=== PATIENT | female | born 1955 | race Caucasian/White ===

== ENCOUNTER → 2018-02-03 | Outpatient (REF) | payer MEDICAID ==
[2018-02-03 18:24] LABS: BASO # 0.1 10^3/uL (0.0-0.2); BASO % 0.4 % (0.0-1.0); EOS # 0.4 10^3/uL (0.0-0.50); EOS % 3.7 % (0.0-3.0); HEMATOCRIT 34.3 % (36.0-47.0); HEMOGLOBIN 11.7 g/dl (12.0-15.5); IMMATURE GRANULOCYTE % 0.4 % (0-3.0); LYMPH # 2.2 10^3/uL (1.5-4.5); LYMPH % 18.6 % (24.0-44.0); MEAN CORPUSCULAR HEMOGLOBIN 32.1 pg (27.0-33.0); MEAN CORPUSCULAR HGB CONC 34.1 g/dl (32.0-36.5); MONO # 0.9 10^3/uL (0.0-0.8); MONO % 7.7 % (0.0-5.0); NEUTROPHILS # 8.1 10^3/uL (1.8-7.7); NEUTROPHILS % 69.2 % (36.0-66.0); PLATELET COUNT, AUTOMATED 299 10^3/uL (150-450); RED BLOOD COUNT 3.65 10^6/uL (4.00-5.40); RED CELL DISTRIBUTION WIDTH 12.3 % (11.5-14.5); WHITE BLOOD COUNT 11.8 10^3/uL (4.0-10.0)
[2018-02-03 18:51] LABS: ESTIMATED AVERAGE GLUCOSE 103 MG/DL (60-110); HEMOGLOBIN A1c 5.2 %
[2018-02-03 19:10] LABS: ALBUMIN 4.1 GM/DL (3.2-5.2); ALBUMIN/GLOBULIN RATIO 1.24 (1.00-1.93); ALKALINE PHOSPHATASE 63 U/L (45-117); ALT/SGPT 29 U/L (12-78); ANION GAP 5 MEQ/L (8-16); AST/SGOT 25 U/L (7-37); BILIRUBIN,TOTAL 0.3 MG/DL (0.2-1.0); BLOOD UREA NITROGEN 15 MG/DL (7-18); CALCIUM LEVEL 9.1 MG/DL (8.8-10.2); CARBON DIOXIDE LEVEL 30 MEQ/L (21-32); CHLORIDE LEVEL 106 MEQ/L (98-107); CHOLESTEROL LEVEL 165 MG/DL (<200); CHOLESTEROL RISK RATIO 2.062 (<5); CREATININE FOR GFR 1.29 MG/DL (0.55-1.30); GLOMERULAR FILTRATION RATE 44.3 (>45); GLUCOSE, FASTING 85 MG/DL (70-100); HDL CHOLESTEROL 80 MG/DL (>40); NON-HDL-C 85 MG/DL; SODIUM LEVEL 141 MEQ/L (136-145); TOTAL PROTEIN 7.4 GM/DL (6.4-8.2); TRIGLYCERIDES LEVEL 95 MG/DL (<150)
== END ==
LOC: M LAB REF 17:18
DX: Z00.00 Encounter for general adult medical examination without abnormal findings (principal)
CPT/HCPCS: 80053

== ENCOUNTER → 2018-08-13 | Outpatient (REF) | payer OTHER, MEDICAID ==
[2018-08-13 13:28] LABS: BASO # 0.1 10^3/uL (0.0-0.2); BASO % 0.8 % (0.0-1.0); EOS # 0.4 10^3/uL (0.0-0.50); EOS % 5.2 % (0.0-3.0); HEMOGLOBIN 11.7 g/dl (12.0-15.5); IMMATURE GRANULOCYTE % 0.1 % (0-3.0); LYMPH % 39.4 % (24.0-44.0); MEAN CORPUSCULAR HEMOGLOBIN 30.8 pg (27.0-33.0); MEAN CORPUSCULAR HGB CONC 32.5 g/dl (32.0-36.5); MEAN CORPUSCULAR VOLUME 94.7 fl (80.0-96.0); MONO # 0.7 10^3/uL (0.0-0.8); NEUTROPHILS # 3.4 10^3/uL (1.8-7.7); NEUTROPHILS % 45.5 % (36.0-66.0); PLATELET COUNT, AUTOMATED 295 10^3/uL (150-450); RED CELL DISTRIBUTION WIDTH 12.1 % (11.5-14.5); WHITE BLOOD COUNT 7.5 10^3/uL (4.0-10.0)
[2018-08-13 13:49] LABS: ALBUMIN 3.6 GM/DL (3.2-5.2); ALBUMIN/GLOBULIN RATIO 1.13 (1.00-1.93); ALKALINE PHOSPHATASE 69 U/L (45-117); ALT/SGPT 23 U/L (12-78); ANION GAP 9 MEQ/L (8-16); AST/SGOT 17 U/L (7-37); BILIRUBIN,TOTAL 0.3 MG/DL (0.2-1.0); BLOOD UREA NITROGEN 13 MG/DL (7-18); CARBON DIOXIDE LEVEL 29 MEQ/L (21-32); CHLORIDE LEVEL 102 MEQ/L (98-107); GLOMERULAR FILTRATION RATE 40.3 (>45); GLUCOSE, FASTING 86 MG/DL (70-100); IRON (FE) 61 UG/DL (50-170); POTASSIUM SERUM 4.2 MEQ/L (3.5-5.1); SODIUM LEVEL 140 MEQ/L (136-145); TOTAL 25(OH) VITAMIN D 25.9 NG/ML (30.0-100.0); TOTAL PROTEIN 6.8 GM/DL (6.4-8.2)
[2018-08-13 14:44] LABS: ESTIMATED AVERAGE GLUCOSE 114 MG/DL (60-110); HEMOGLOBIN A1c 5.6 %
== END ==
LOC: M LAB REF 12:20
DX: R53.81 Other malaise (principal)

== ENCOUNTER 2018-11-15 07:24 | Inpatient (IN) | payer MEDICARE, OTHER, MEDICAID ==
[~2018-11-15] VITALS: Ht 152.4 cm; Wt 76.0 kg
[2018-11-15] MEDS ORDERED: LORazepam 2 MG/ML VIAL (J2060) IV STA (07:38)
[2018-11-15] MEDS ORDERED: LISI-538 PO (07:44)
[2018-11-15] MEDS ORDERED: ALPR0.25 PO (07:44)
[2018-11-15] MEDS ORDERED: TRAM50TA2 PO (07:44)
[2018-11-15] MEDS ORDERED: OMEP20CA3 PO (07:44)
[2018-11-15] MEDS ORDERED: SERT-155 PO (07:44)
[2018-11-15] MEDS ORDERED: CARV25TA PO (07:44)
[2018-11-15] MEDS ORDERED: VITA50005 PO (07:44)
[2018-11-15] MEDS ORDERED: ATOR40TA75 PO (07:44)
[2018-11-15] MEDS ORDERED: CLON-412 PO (07:44)
[2018-11-15] MEDS ORDERED: METOCLOPRAMIDE INJ 10MG/2ML VIAL (J2765) IV ONE (07:45)
[2018-11-15] MEDS ORDERED: NS 1,000 ML IV ONE (07:45)
[2018-11-15] MEDS ORDERED: RANI1SYP PO (08:01)
[2018-11-15] MEDS ORDERED: HYDR100T PO (08:01)
[2018-11-15] MEDS ORDERED: PRED1TABL PO (08:01)
[2018-11-15] MEDS ORDERED: BUME1TAB3 PO (08:01)
[2018-11-15 08:17] LABS: BASO # 0.1 10^3/uL (0.0-0.2); BASO % 0.3 % (0.0-1.0); EOS # 0.5 10^3/uL (0.0-0.50); EOS % 3.2 % (0.0-3.0); HEMATOCRIT 40.5 % (36.0-47.0); HEMOGLOBIN 13.7 g/dl (12.0-15.5); LYMPH # 1.5 10^3/uL (1.5-4.5); LYMPH % 9.3 % (24.0-44.0); MEAN CORPUSCULAR HEMOGLOBIN 31.6 pg (27.0-33.0); MEAN CORPUSCULAR HGB CONC 33.8 g/dl (32.0-36.5); MEAN CORPUSCULAR VOLUME 93.3 fl (80.0-96.0); MONO # 1.2 10^3/uL (0.0-0.8); MONO % 7.6 % (0.0-5.0); NEUTROPHILS # 12.6 10^3/uL (1.8-7.7); NEUTROPHILS % 79.2 % (36.0-66.0); PLATELET COUNT, AUTOMATED 281 10^3/uL (150-450); RED BLOOD COUNT 4.34 10^6/uL (4.00-5.40); WHITE BLOOD COUNT 15.9 10^3/uL (4.0-10.0)
--- NOTE | 2018-11-15 08:18 | REP ---
Clinical: Nausea and vomiting and diarrhea. Technique: Upright view of the chest with supine and upright views of the abdomen and pelvis. Findings: Frontal upright view of the chest demonstrates no acute cardiopulmonary process or free air below the diaphragm to suspect pneumoperitoneum. Supine and upright views of the abdomen and pelvis demonstrate nonspecific bowel gas pattern without obstruction or perforation. No organomegaly. Skeletal structures demonstrate age-related degenerative changes. Evidence of prior cholecystectomy. Calcification in the left mid abdomen may represent a renal stone. Impression: Nonspecific bowel gas pattern. Electronically Signed by Emmanuel Rivero MD 11/15/2018 08:10 A
[2018-11-15 08:41] LABS: ALBUMIN 3.9 GM/DL (3.2-5.2); ALT/SGPT 23 U/L (12-78); BILIRUBIN,DIRECT 0.1 MG/DL (0.0-0.2); BILIRUBIN,TOTAL 0.5 MG/DL (0.2-1.0); BLOOD UREA NITROGEN 16 MG/DL (7-18); CALCIUM LEVEL 9.2 MG/DL (8.8-10.2); CARBON DIOXIDE LEVEL 24 MEQ/L (21-32); CHLORIDE LEVEL 106 MEQ/L (98-107); CPK CREATINE PHOSPHOKINASE 111 U/L (26-192); CREATININE FOR GFR 1.25 MG/DL (0.55-1.30); GLOMERULAR FILTRATION RATE 45.9 (>45); GLUCOSE, FASTING 144 MG/DL (70-100); LIPASE 123 U/L (73-393); MB/CK RELATIVE INDEX 1.17 (< OR =4); POTASSIUM SERUM 3.8 MEQ/L (3.5-5.1); SODIUM LEVEL 139 MEQ/L (136-145); THYROID STIMULATING HORMONE 0.629 uIU/ML (0.358-3.740); TOTAL PROTEIN 7.7 GM/DL (6.4-8.2); TROPONIN I < 0.02 NG/ML (< 0.10)
[2018-11-15] MEDS ORDERED: ISOVUE-370 76% 100ML VIAL (Q9967) As Ordered ONE (08:58)
[2018-11-15] MEDS ORDERED: ONDANSETRON 4MG/2ML VIAL (J2405) IV ONE ×2 (09:00→11:45)
--- NOTE | 2018-11-15 09:36 | REP ---
Clinical: Vomiting and diarrhea. Technique: Axial contrast enhanced images from the lung bases to the pubic symphysis with coronal and sagittal re-formations using 100 ml Isovue 370 intravenous contrast material. Findings: Lung bases are clear. Small hiatal hernia at the gastroesophageal junction. Liver, spleen, pancreas, bilateral adrenal glands and kidneys are relatively normal. The patient is status post cholecystectomy with compensatory biliary ductal dilatation. The enteric system is without obstruction or acute inflammatory process. Normal terminal ileum and appendix identified in the right lower quadrant. Colonic and sigmoid diverticulosis noted without acute diverticulitis. Pelvis demonstrates normal bladder and age-appropriate uterus/adnexa 3.3 cm left adnexal cyst noted. No ascites. No free air. No adenopathy. Atherosclerotic changes to the aorta and vasculature without aneurysm or dissection. Musculoskeletal structures demonstrate degenerative changes. Impression: 1. No acute abdominopelvic pathology. 2. Hiatal hernia. 3. Diverticulosis without acute diverticulitis. 4. No ascites, focal inflammatory stranding, or adenopathy. Electronically Signed by Emmanuel Rivero MD 11/15/2018 09:27 A
[2018-11-15] MEDS ORDERED: LISINOPRIL 20 MG TAB PO ONE (10:30)
[2018-11-15] MEDS ORDERED: CARVedilol 12.5 MG TAB PO ONE (10:30)
[2018-11-15] MEDS ORDERED: traMADol 50 MG TAB PO ONE (10:30)
[2018-11-15] MEDS ORDERED: cloNIDine 0.1 MG TAB PO ONE (10:30)
[2018-11-15] MEDS ORDERED: ZOFR4TAB16 PO (10:37)
[2018-11-15] MEDS ORDERED: PROMETHAZINE INJ 25 MG/ML VIAL (J2550) IV ONE (13:15)
[2018-11-15] MEDS ORDERED: hydrALAZINE INJ 20 MG/ML VIAL IV STA (13:16)
[2018-11-15] MEDS ORDERED: PRED5TA PO (14:56)
[2018-11-15] MEDS ORDERED: MELA3TAB49 PO (14:58)
[2018-11-15] MEDS ORDERED: hydrALAZINE INJ 20 MG/ML VIAL IV ONE (16:00)
[2018-11-15] MEDS ORDERED: PROMETHAZINE INJ 25 MG/ML VIAL (J2550) IV PRN (16:00)
[2018-11-15] MEDS: ALPRAZolam 0.25 MG TAB PO SCH ×2 (17:09→20:49)
[2018-11-15] MEDS: traMADol 50 MG TAB PO PRN (17:10)
[2018-11-15 18:08] VITALS: BP 177/82
[2018-11-15] MEDS ORDERED: ACETAMINOPHEN TAB 650MG DOSE (2X325MG) PO PRN (18:30)
[2018-11-15] MEDS: NS 1,000 ML IV SCH (18:32)
[2018-11-15] MEDS: CIPROFLOXACIN 400 MG in APPROPRIATE DILUENT 1 EA IV SCH (19:59)
[2018-11-15 20:42] VITALS: BP 146/79
[2018-11-15] MEDS: CARVedilol 12.5 MG TAB PO SCH (20:48)
[2018-11-15] MEDS: metroNIDAZOLE 500 MG in APPROPRIATE DILUENT 1 EA IV SCH (21:00)
[2018-11-16] VITALS: BP 100/50
[2018-11-16] MEDS: NS 1,000 ML IV SCH (03:33)
[2018-11-16 04:45] VITALS: BP 112/60
[2018-11-16] MEDS: metroNIDAZOLE 500 MG in APPROPRIATE DILUENT 1 EA IV SCH ×3 (05:06→21:11)
[2018-11-16 06:22] LABS: BASO % 0.2 % (0.0-1.0); EOS # 0.3 10^3/uL (0.0-0.50); HEMATOCRIT 36.2 % (36.0-47.0); HEMOGLOBIN 12.2 g/dl (12.0-15.5); LYMPH # 1.6 10^3/uL (1.5-4.5); LYMPH % 18.6 % (24.0-44.0); MEAN CORPUSCULAR HGB CONC 33.7 g/dl (32.0-36.5); MEAN CORPUSCULAR VOLUME 92.1 fl (80.0-96.0); MONO # 0.9 10^3/uL (0.0-0.8); NEUTROPHILS # 5.9 10^3/uL (1.8-7.7); PLATELET COUNT, AUTOMATED 264 10^3/uL (150-450); RED BLOOD COUNT 3.93 10^6/uL (4.00-5.40); WHITE BLOOD COUNT 8.7 10^3/uL (4.0-10.0)
[2018-11-16 07:42] LABS: BILIRUBIN,TOTAL 0.5 MG/DL (0.2-1.0); CALCIUM LEVEL 7.8 MG/DL (8.8-10.2); CREATININE FOR GFR 1.56 MG/DL (0.55-1.30); GLOMERULAR FILTRATION RATE 35.6 (>45); POTASSIUM SERUM 3.5 MEQ/L (3.5-5.1); TOTAL PROTEIN 6.4 GM/DL (6.4-8.2)
[2018-11-16] MEDS: CIPROFLOXACIN 400 MG in APPROPRIATE DILUENT 1 EA IV SCH ×2 (07:46→20:13)
--- NOTE | 2018-11-16 07:55 | ECGEPIP ---
Stationary ECG Study [facility] - ED Test Date: 2018-11-15 Pat Name: JEANINE MARINO Department: Room: - Gender: F Engineering Tech: aroldo : [id number] Requested By: Lakshmi Glass Order Number: [id number] Reading MD: Cece Fontenot Measurements Intervals [place] Rate: 61 P: 25 KS: 201 QRS: 7 QRSD: 77 T: 38 QT: 414 QTc: 419 Interpretive Statements SINUS RHYTHM NONSPECIFIC ST T WAVE CHANGES NO OLD ECG FOR COMPARISON Electronically Signed On 11-16-2018 7:54:42 EST by Cece Fontenot
[2018-11-16 08:00] VITALS: BP 129/61
[2018-11-16] MEDS ORDERED: LISINOPRIL 20 MG TAB PO SCH (09:00)
[2018-11-16 09:33] LABS: C REACTIVE PROTEIN QUANTITATIV 5.2 MG/DL (0.00-0.30); MB/CK RELATIVE INDEX 2.22 (< OR =4); TROPONIN I 0.08 NG/ML (< 0.10)
[2018-11-16] MEDS: cloNIDine 0.1 MG TAB PO SCH ×2 (09:48→21:10)
[2018-11-16] MEDS: SERTRALINE HCL 50 MG TAB PO SCH (09:48)
[2018-11-16] MEDS: ALPRAZolam 0.25 MG TAB PO SCH ×3 (09:48→21:09)
[2018-11-16] MEDS: ATORVASTATIN 20 MG TAB PO SCH (09:49)
[2018-11-16] MEDS: OMEPRAZOLE 20 MG CAP PO SCH (09:49)
[2018-11-16] MEDS: predniSONE 5 MG TAB PO SCH (09:49)
[2018-11-16] MEDS: CARVedilol 12.5 MG TAB PO SCH ×2 (09:49→21:11)
[2018-11-16] MEDS: HEPARIN SOD (PORCINE) 5000 UNITS/ML VIAL SQ SCH ×2 (09:50→21:09)
[2018-11-16] MEDS: KCL 20MEQ in NS 1000ML 1,000 ML IV SCH (09:50)
--- NOTE | 2018-11-16 11:56 | HPE ---
DATE OF ADMISSION: 11/15/2018 HISTORY OF PRESENT ILLNESS (HPI): This 62-year-old female with past medical history of rheumatoid arthritis, hypertension, hyperlipidemia, chronic diastolic heart failure, chronic kidney disease (CKD) III presents to the emergency room (ER) with intractable nausea, vomiting and a watery diarrhea since 1:30 this morning. She had not been around any sick contacts. She had no eaten any foreign foods recently. In the ER she was started on intravenous (IV) fluids and had episodes of vomiting in the ER and was given IV Ativan, Metoclopramide IV as well as Zofran times two. She felt somewhat better but then had another episode of vomiting and was given promethazine IV as well as given 5 of IV hydralazine due to hypertensive urgency because the patient could not take any of her blood pressure medications. At this time the patient's blood pressure is still 207/97. I am going to be giving her 20 of IV hydralazine stat and will follow the numbers. For now the patient denies any chest pain, shortness of breath, no vertigo, no headache, no tinnitus and just nausea. She will be admitted for further management. PAST MEDICAL HISTORY: 1. Hypertension. 2. Hyperlipidemia. 3. Rheumatoid arthritis. 4. Chronic diastolic heart failure. ALLERGIES: CODEINE. FAMILY HISTORY: Noncontributory. SOCIAL HISTORY: The patient denies tobacco, alcohol, or illicit drugs. Medications she takes at home are as follows: - alprazolam 0.25 mg orally three times a day - atorvastatin 40 mg orally daily - Coreg 25 mg orally twice daily - Clonidine 0.1 mg orally twice daily - ergocalciferol 50,000 units orally weekly - lisinopril 20 mg orally daily - melatonin 3 mg orally at bedtime as needed - omeprazole 20 mg orally daily - prednisone 5 mg orally daily - sertraline 50 mg orally daily - tramadol 50 mg orally every 4 hours as needed REVIEW OF SYSTEMS: Negative for all 10 major systems except as mentioned in the HPI. VITAL SIGNS: Blood pressure 207/97, heart rate 67 and regular, respiratory rate 22, temperature 98.2, oxygen saturation 97% on room air. HEENT: Head is normocephalic atraumatic. NECK: Supple, no jugular venous distention (JVD). LUNGS: Clear to auscultation. HEART: S1, S2 audible, no murmurs appreciated. ABDOMEN: Soft, positive bowel sounds. EXTREMITIES: No pedal edema. SKIN: Intact. NEUROLOGIC: The patient is awake, alert and oriented times three. LABORATORY DATA: Sodium 139, potassium 3.8, chloride 106, CO2 24, BUN 16, creatinine 1.25. Glucose 144, AST 18, ALT 23, alkaline phosphatase 82. CK 111, troponin less than 0.02, lipase 123. WBC 15.9, hemoglobin 13.7, hematocrit 40.5, platelets 21,000. IMPRESSION: 1. Acute viral gastroenteritis. 2. Hypertension urgency. PLAN: The patient will be admitted to the progressive care unit (PCU). I am going to continue her current home medications with the addition of intravenous (IV) Phenergan at 20 every 6 hours as needed for nausea. I am also going to give her IV hydralazine at 10 IV every 6 hours as needed for systolic blood pressure greater than 160. Will continue following blood pressure trends. If she is not able to take her blood pressure medication and/or if the IV hydralazine has not been effective, I am going to consider to start the patient on a nitropatch. Will continue following the patient in the med/surg floor.
[2018-11-16 12:00] VITALS: BP 102/58
[2018-11-16] MEDS: traMADol 50 MG TAB PO PRN ×3 (13:30→23:42)
[2018-11-16 16:00] VITALS: BP 123/60
[2018-11-16] MEDS ORDERED: FLAG250T PO (17:15)
[2018-11-16] MEDS ORDERED: CIPR-250 PO (17:15)
--- NOTE | 2018-11-16 17:53 | DSES ---
DATE OF ADMISSION: 11/15/2018 DATE OF DISCHARGE: PRIMARY CARE PROVIDER: Amirah Cameron FINAL DIAGNOSES: Gastroenteritis. Hypertensive urgency. HISTORY OF PRESENT ILLNESS: This is a 62-year-old female patient with underlying medical history of rheumatoid arthritis, hypertension, dyslipidemia, chronic diastolic congestive heart failure, chronic kidney disease, presented to the emergency department with intractable nausea, vomiting, watery diarrhea for one day. Has not had any sick contact or eaten at any place. No recent travel. She was given intravenous (IV) fluids. Multiple antiemetics without much improvement. The patient was also having blood pressures in the 200s in the emergency room, given hydralazine. Subsequent decision was made to admit the patient. HOSPITAL COURSE: The patient had CT scan done, started on IV fluids, as well as Cipro and Flagyl with clinical improvement. Unfortunately, the patient's diarrhea resolved before stool specimen could be collected. The patient's blood pressure has been much better controlled. Likely the patient has rebound hypertension due to clonidine. Risks and benefits of clonidine have been discussed with the patient. Currently the patient is tolerating oral without further diarrhea, but the patient's kidney function slightly worsened. Subsequent decision was made to hydrate the patient and observe the patient for one more day prior to discharge. Likely time of discharge 11/17/2018. VITAL SIGNS: Temperature 98.9, pulse 65, respirations 18, blood pressure 102/58, pulse oximetry 94% on room air. LABORATORY: WBC 8.7, hemoglobin and hematocrit 12.2 over 36.2, platelets 264. Chemistry: Sodium 140, potassium 3.5, chloride 108, bicarbonate 23, BUN 17, creatinine 1.56. Cardiac enzymes negative times two. GENERAL: Patient alert, comfortable, in no acute distress. HEENT: Normocephalic, atraumatic. NECK: Supple. PULMONARY: Bilaterally clear. CARDIAC: Regular, S1, S2. ABDOMEN: Soft, nontender, positive bowel sounds. EXTREMITIES: No clubbing, cyanosis, or edema. ASSESSMENT AND PLAN: This is a 62-year-old female patient with underlying medical history of rheumatoid arthritis, hypertension, dyslipidemia, chronic diastolic congestive heart failure, chronic kidney disease, admitted for acute gastroenteritis, hypertensive urgency. PROBLEMS: 1. Acute gastroenteritis with leukocytosis. Patient on Cipro and Flagyl, IV fluids, diet as tolerated. Unable to collect GI panel. Patient's symptoms much improved. 2. Hypertensive urgency. Likely rebound hypertension due to unable to take clonidine. 3. Chronic kidney disease with mild creatinine elevation. IV fluids for hydration. Will monitor overnight. Likely discharge in 24 hours. Lisinopril has been on hold. 4. Hypertension with hypertensive urgency. Continue clonidine. Risks and benefits have been described. Lisinopril on hold given elevated creatinine. Continue Coreg. 5. Dyslipidemia. Continue statin. 6. Gastroesophageal reflux disease (GERD). Continue proton pump inhibitor (PPI). 7. Rheumatoid arthritis. Continue current medication. 8. Depression. Continue current medication. 9. Deep vein thrombosis (DVT) prophylaxis. Heparin subcu. DISPOSITION: Likely discharge in 24 hours. DISCHARGE MEDICATIONS: - Cipro 250 mg by mouth twice a day for 5 more days - Flagyl 250 mg by mouth three times a day for 5 days - Continue Xanax 0.25 mg by mouth three times a day - Lipitor 40 mg by mouth daily - Coreg 25 mg by mouth twice a day - clonidine 0.1 mg by mouth twice a day - vitamin D 50,000 units by mouth weekly - lisinopril 20 mg by mouth daily - melatonin 3 mg by mouth nightly as needed - omeprazole 20 mg by mouth daily - prednisone 5 mg by mouth daily - sertraline 50 mg by mouth daily - tramadol 50 mg by mouth every 4 hours as needed DISCHARGE INSTRUCTIONS: Please followup with primary care provider in 7 days. Management of blood pressure as per primary care provider. Check kidney function with primary care provider. Return to the hospital if symptoms worsen.
[2018-11-16 20:00] VITALS: BP 113/65
[2018-11-17] VITALS: BP 105/62
[2018-11-17] MEDS: KCL 20MEQ in NS 1000ML 1,000 ML IV SCH (02:33)
[2018-11-17 04:00] VITALS: BP 95/55
[2018-11-17] MEDS: metroNIDAZOLE 500 MG in APPROPRIATE DILUENT 1 EA IV SCH (05:04)
[2018-11-17 05:50] LABS: HEMATOCRIT 30.8 % (36.0-47.0); HEMOGLOBIN 10.4 g/dl (12.0-15.5); MEAN CORPUSCULAR HEMOGLOBIN 31.4 pg (27.0-33.0); MEAN CORPUSCULAR HGB CONC 33.8 g/dl (32.0-36.5); MEAN CORPUSCULAR VOLUME 93.1 fl (80.0-96.0); PLATELET COUNT, AUTOMATED 216 10^3/uL (150-450); RED BLOOD COUNT 3.31 10^6/uL (4.00-5.40); WHITE BLOOD COUNT 7.1 10^3/uL (4.0-10.0)
[2018-11-17 06:12] LABS: C REACTIVE PROTEIN QUANTITATIV 1.85 MG/DL (0.00-0.30); CALCIUM LEVEL 7.5 MG/DL (8.8-10.2); CREATININE FOR GFR 1.08 MG/DL (0.55-1.30); GLOMERULAR FILTRATION RATE 54.4 (>45); MAGNESIUM LEVEL 1.5 MG/DL (1.8-2.4); POTASSIUM SERUM 3.8 MEQ/L (3.5-5.1)
[2018-11-17] MEDS ORDERED: MAG SULF 1GM/100ML (MAG RUN) 1 GM in APPROPRIATE DILUENT 1 EA IV ONE (07:30)
[2018-11-17 08:00] VITALS: BP 151/67
[2018-11-17] MEDS: CIPROFLOXACIN 400 MG in APPROPRIATE DILUENT 1 EA IV SCH (08:58)
[2018-11-17] MEDS: HEPARIN SOD (PORCINE) 5000 UNITS/ML VIAL SQ SCH (09:00)
[2018-11-17] MEDS: ATORVASTATIN 20 MG TAB PO SCH (09:09)
[2018-11-17] MEDS: predniSONE 5 MG TAB PO SCH (09:10)
[2018-11-17] MEDS: SERTRALINE HCL 50 MG TAB PO SCH (09:10)
[2018-11-17] MEDS: cloNIDine 0.1 MG TAB PO SCH (09:10)
[2018-11-17] MEDS: traMADol 50 MG TAB PO PRN (09:10)
[2018-11-17] MEDS: OMEPRAZOLE 20 MG CAP PO SCH (09:10)
[2018-11-17] MEDS: ALPRAZolam 0.25 MG TAB PO SCH (09:10)
[2018-11-17 09:11] VITALS: BP 151/67
[2018-11-17] MEDS: CARVedilol 12.5 MG TAB PO SCH (09:11)
--- NOTE | 2018-11-17 13:23 | DS.PDOC ---
Discharge Summary General Date of Admission Nov 15, 2018 at 15:46 Date of Discharge 11/17/2018 Discharge Summary ADDENDUM TO DISCHARGE SUMMARY FROM 11/16/2018 HOSPITAL COURSE: Patient remained inpatient for 1 additional day awaiting improvement of creatinine. She states on IV fluid hydration and creatinine has returned back to her baseline. Currently she is tolerating a full diet, has a full resolution of her symptoms and will be completing antibiotic course as an outpatient. Please see discharge summary from 11/26/2018 for further details. DISCHARGE PLAN: Follow up with PCP within 7 days Remain complaint with treatment plan and medications Return to the ER if you experience any problems. DISPOSITION: Home, Self-Care. DISCHARGE CONDITION: [Stable]. TIME SPENT ON DISCHARGE: Greater than minutes. Vital Signs/I&Os Vital Signs Date Time Temp Pulse Resp B/P (MAP) Pulse Ox O2 Delivery O2 Flow Rate FiO2 11/17/18 09:40 18 11/17/18 09:11 73 151/67 11/17/18 08:00 99.3 100 11/15/18 17:18 Room Air I&O- Last 24 Hours up to 6 AM 11/17/18 06:00 Intake Total 3505 ml Output Total 1975 ml Balance 1530 ml Laboratory Data Labs 24H Laboratory Tests 2 11/17/18 05:37: Nucleated Red Blood Cells % (auto) 0.0, Anion Gap 6L, Glomerular Filtration Rate 54.4, Blood Urea Nitrogen 10, Creatinine 1.08, Sodium Level 143, Potassium Level 3.8, Chloride Level 113H, Carbon Dioxide Level 24, Calcium Level 7.5L, Magnesium Level 1.5L, C-Reactive Protein, Quantitative 1.85H CBC/BMP Laboratory Tests 11/17/18 05:37 Red Blood Count 3.31 L, Mean Corpuscular Volume 93.1, Mean Corpuscular Hemoglobin 31.4, Mean Corpuscular Hemoglobin Concent 33.8, Red Cell Distribution Width 12.2, Calcium Level 7.5 L Microbiology Microbiology 11/15/18 Blood Culture - Preliminary, Resulted No growth after 24 hours . All specim... 11/15/18 Blood Culture - Preliminary, Resulted No growth after 24 hours . All specim... Discharge Medications Scheduled (Sertraline HCl) 50 Mg Tab, 50 MG PO DAILY, (Reported) Alprazolam (Alprazolam) 0.25 Mg Tab, 0.25 MG PO TID, (Reported) Atorvastatin Calcium (Atorvastatin Calcium) 40 Mg Tab, 40 MG PO DAILY, (Reported) Carvedilol (Carvedilol) 25 Mg Tab, 25 MG PO BID, (Reported) Ciprofloxacin HCl (Cipro) 250 Mg Tab, 250 MG PO BID Clonidine Hydrochloride (Clonidine HCl) 0.1 Mg Tab, 0.1 MG PO BID, (Reported) Ergocalciferol (Vitamin D) 50,000 Unit Cap, 50,000 UNITS PO QWEEK, (Reported) TAKES ON MONDAYS. Lisinopril (Lisinopril) 20 Mg Tab, 20 MG PO DAILY, (Reported) Metronidazole (Flagyl) 250 Mg Tab, 250 MG PO TID Omeprazole (Omeprazole) 20 Mg Cap, 20 MG PO DAILY, (Reported) Prednisone (Prednisone) 5 Mg Tab, 5 MG PO DAILY, (Reported) Scheduled PRN (Melatonin) 3 Mg Tab, 3 MG PO QHS PRN for SLEEP, (Reported) Tramadol HCl (Tramadol HCl) 50 Mg Tab, 50 MG PO Q4H PRN for PAIN, (Reported) Allergies Coded Allergies: Codeine (Verified Allergy, Unknown, UNKNOWN, 11/15/18) BATSHEVA CORCORAN MD Nov 17, 2018 13:23
== END 2018-11-17 11:42 | disposition home or self-care (01) | DRG 392 ==
LOC: M ED 07:24 → EDBD 07:24 → M ED INP 15:46 → M PCU 18:08
PROVIDERS: ADMIT Internal Medicine; ATTEND Internal Medicine
DX: A08.4 Viral intestinal infection, unspecified (principal); I50.32 Chronic diastolic (congestive) heart failure; N17.9 Acute kidney failure, unspecified; I16.0 Hypertensive urgency; M06.9 Rheumatoid arthritis, unspecified; I11.0 Hypertensive heart disease with heart failure; E78.5 Hyperlipidemia, unspecified; D72.829 Elevated white blood cell count, unspecified; K21.9 Gastro-esophageal reflux disease without esophagitis; Z79.899 Other long term (current) drug therapy

== ENCOUNTER → 2019-02-25 | Outpatient (CLI) | payer MEDICARE, MEDICAID ==
[~2019-02-25] MED LIST: ALPR0.25 PO; ATOR40TA75 PO; BUME1TAB3 PO; CARV25TA PO; CIPR-250 PO; CLON-412 PO; FLAG250T PO; HYDR100T PO; LISI-538 PO; MELA3TAB49 PO; OMEP20CA3 PO; PRED1TABL PO; PRED5TA PO; RANI1SYP PO; SERT-155 PO; TRAM50TA2 PO; VITA50005 PO; ZOFR4TAB16 PO
--- NOTE | 2019-03-01 10:05 | DEXA ---
AP SPINE L1 - L4 1.270 0.6 2.2 LT FEMUR TOTAL 0.802 -1.6 -0.4 LT NECK 0.678 -2.6 -1.1 RT FEMUR TOTAL 0.833 -1.4 -0.2 RT NECK 0.762 -2.0 -0.5 TOTAL BODY TOTAL OTHER COMMENTS: Normal bone densitometry of the spine. There is low bone density of the right hip. There is osteoporosis of the left hip. FOLLOW-UP: Recommendation for the next bone density exam: 2 years. LEONIE
== END ==
LOC: M WHC 12:46
PROVIDERS: ATTEND Nurse Practitioner Family
DX: Z13.820 Encounter for screening for osteoporosis (principal); M81.0 Age-related osteoporosis without current pathological fracture

== ENCOUNTER → 2019-04-07 | Outpatient (REF) | payer MEDICARE ==
[~2019-04-07] MED LIST changes: -OMEP20CA3 PO; +OMEP20CA4 PO
[2019-04-07 13:31] LABS: BASO # 0.1 10^3/uL (0.0-0.2); BASO % 0.6 % (0.0-1.0); EOS # 0.4 10^3/uL (0.0-0.50); EOS % 5.4 % (0.0-3.0); HEMATOCRIT 37.7 % (36.0-47.0); HEMOGLOBIN 12.8 g/dl (12.0-15.5); LYMPH # 1.6 10^3/uL (1.5-4.5); LYMPH % 19.3 % (24.0-44.0); MEAN CORPUSCULAR HEMOGLOBIN 31.9 pg (27.0-33.0); MONO # 0.7 10^3/uL (0.0-0.8); MONO % 8.2 % (0.0-5.0); NEUTROPHILS # 5.4 10^3/uL (1.8-7.7); NEUTROPHILS % 66.1 % (36.0-66.0); PLATELET COUNT, AUTOMATED 284 10^3/uL (150-450); RED BLOOD COUNT 4.01 10^6/uL (4.00-5.40); WHITE BLOOD COUNT 8.1 10^3/uL (4.0-10.0)
[2019-04-07 13:32] LABS: ALBUMIN 3.8 GM/DL (3.2-5.2); ALT/SGPT 22 U/L (12-78); BILIRUBIN,TOTAL 0.2 MG/DL (0.2-1.0); BLOOD UREA NITROGEN 20 MG/DL (7-18); CARBON DIOXIDE LEVEL 29 MEQ/L (21-32); CHLORIDE LEVEL 106 MEQ/L (98-107); CREATININE FOR GFR 1.11 MG/DL (0.55-1.30); GLOMERULAR FILTRATION RATE 52.5 (>45); GLUCOSE, FASTING 99 MG/DL (70-100); POTASSIUM SERUM 4.7 MEQ/L (3.5-5.1); SODIUM LEVEL 139 MEQ/L (136-145); TOTAL PROTEIN 7.4 GM/DL (6.4-8.2)
[2019-04-07 14:11] LABS: HEPATITIS B SURFACE ANTIBODY POSITIVE (POSITIVE)
[2019-04-07 15:20] LABS: ERYTHROCYTE SEDIMENTATION RATE 16 mm/hr (0-30)
== END ==
LOC: M SFHCPLAZ 11:28
PROVIDERS: ATTEND Internal Medicine Rheumatology
DX: M06.9 Rheumatoid arthritis, unspecified (principal); Z79.899 Other long term (current) drug therapy; L40.9 Psoriasis, unspecified; M54.41 Lumbago with sciatica, right side
CPT/HCPCS: 36415; 80053; 85025; 85652; 86140; 86704; 86706; G0463

== ENCOUNTER → 2019-07-08 | Outpatient (REF) | payer MEDICARE ==
[2019-07-10 15:10] LABS: HPV HYBRID CAPTURE II Negative (Negative)
== END ==
LOC: M SFHCWAGY 13:37
PROVIDERS: ATTEND Nurse Practitioner Women's Health
DX: Z01.419 Encounter for gynecological examination (general) (routine) without abnormal findings (principal); Z12.31 Encounter for screening mammogram for malignant neoplasm of breast; N95.2 Postmenopausal atrophic vaginitis
CPT/HCPCS: 77063; 77067; 87624; G0101; G0123

== ENCOUNTER → 2019-07-08 | Outpatient (CLI) | payer MEDICARE ==
--- NOTE | 2019-07-13 14:05 | REPMRS ---
Patient History The patient states she had a clinical breast exam in 06/2019. Patient is postmenopausal. No known family history of cancer. 3D TOMOSYNTHESIS WAS PERFORMED. The [facility] lifetime risk for breast cancer is 5.2%. Digital Woman Screen Mammo: July 08, 2019 - Exam #: [id number] Bilateral CC and MLO view(s) were taken. Technologist: Ni Fried Technologist FINDINGS: There are scattered fibroglandular densities. There has been no change in the appearance of the mammogram from the prior studies. There is a mild amount of residual fibroglandular tissue which is fairly symmetric. There is no interval development of dominant mass, architectural distortion, or clustered microcalcification suggestive of malignancy. Assessment: BI-RADS/ACR category 1 mammogram. Negative Mammogram. Recommendation Routine screening mammogram in 1 year (for women over age 40). This mammogram was interpreted with the aid of an FDA-approved computer-aided dectection system. Electronically Signed By: Luis Enrique Chang MD 07/13/19 [id number]
== END ==
LOC: M WHC 12:42
PROVIDERS: ATTEND Nurse Practitioner Women's Health
DX: Z12.31 Encounter for screening mammogram for malignant neoplasm of breast (principal); Z78.0 Asymptomatic menopausal state

== ENCOUNTER → 2019-08-25 | Outpatient (CLI) | payer MEDICARE ==
[~2019-08-25] MED LIST changes: -SERT-155 PO; +SERT50TA29 PO
--- NOTE | 2019-08-26 08:55 | REP ---
MRI lumbar spine: 08/25/2019. Indication: Low back pain. Comparison: None. Technique: Multiplanar short and long TR sequences of the lumbar spine were performed without IV Gadolinium. Findings: There is a grade 1 anterolisthesis of L3 on L4 secondary to facet arthrosis. Minimal anterolisthesis of L4 on L5 and retrolisthesis of L5 on S1 are noted. Disc desiccation and disc space narrowing are present throughout. Endplate degenerative signal changes are present most pronounced at L4/L5. No worrisome marrow signal is detected. The visualized cord is normal. No significant paraspinal soft tissue abnormalities are present. L1/L2 and L2/L3: Diffuse disc bulge and bilateral facet arthropathy are present with mild spinal canal and neural foraminal narrowing. L3/L4: There is a small left paracentral disc extrusion with minimal cephalad migration superimposed on a diffuse uncovered/bulging disc. Significant bilateral facet arthropathy and ligamental laxity are noted. New new [id number] left recess narrowing is present. The left-sided disc herniations/bulge does contact the exiting left L3 nerve root. The right neural foramen is patent. L4/L5: Diffuse uncovered/bulging disc and osteophytes are present with significant bilateral facet arthropathy. Moderate to severe left and moderate right recess narrowing is noted. Moderate bilateral neural foraminal narrowing is present. L5/S1: Diffuse disc and spur complex and mild bilateral facet arthropathy are present. Moderate bilateral recess and neural foraminal narrowing is noted. Impression: Significant multilevel degenerative sequelae as described most pronounced at L3/L4 and L4/L5. Electronically Signed by Daniel Alvarado DO 08/26/2019 08:47 A
== END ==
LOC: M RAD 16:49
PROVIDERS: ATTEND Family Medicine
DX: M51.26 Other intervertebral disc displacement, lumbar region (principal)

== ENCOUNTER → 2020-05-01 | Outpatient (REF) | payer MEDICARE, OTHER ==
[~2020-05-01] MED LIST changes: +OMEP1CAP73 PO; -OMEP20CA4 PO
[2020-05-01 12:26] LABS: BASO % 0.4 % (0.0-1.0); EOS # 0.5 10^3/uL (0.0-0.5); EOS % 7.6 % (0.0-3.0); HEMATOCRIT 34.4 % (36.0-47.0); HEMOGLOBIN 11.6 g/dl (12.0-15.5); LYMPH # 3.3 10^3/uL (1.5-5.0); LYMPH % 49.6 % (24.0-44.0); MEAN CORPUSCULAR HEMOGLOBIN 32.8 pg (27.0-33.0); MEAN CORPUSCULAR HGB CONC 33.7 g/dl (32.0-36.5); MEAN CORPUSCULAR VOLUME 97.2 fl (80.0-96.0); MONO # 0.7 10^3/uL (0.0-0.8); MONO % 10.8 % (0.0-5.0); NEUTROPHILS # 2.1 10^3/uL (1.5-8.5); NEUTROPHILS % 31.5 % (36.0-66.0); PLATELET COUNT, AUTOMATED 316 10^3/uL (150-450); RED BLOOD COUNT 3.54 10^6/uL (4.00-5.40); WHITE BLOOD COUNT 6.7 10^3/uL (4.0-10.0)
[2020-05-01 12:41] LABS: ALBUMIN 4.2 GM/DL (3.2-5.2); BILIRUBIN,TOTAL 0.5 MG/DL (0.2-1.0); CALCIUM LEVEL 9.7 MG/DL (8.8-10.2); CHOLESTEROL RISK RATIO 3.735 (<5); CREATININE FOR GFR 1.41 MG/DL (0.55-1.30); FREE T4 0.77 NG/DL (0.76-1.46); GLOMERULAR FILTRATION RATE 39.7 (>45); POTASSIUM SERUM 4.7 MEQ/L (3.5-5.1); THYROID STIMULATING HORMONE 2.95 uIU/ML (0.358-3.740); TOTAL PROTEIN 7.7 GM/DL (6.4-8.2)
[2020-05-01 12:43] LABS: TOTAL 25(OH) VITAMIN D 30.9 NG/ML (30.0-100.0)
== END ==
LOC: M LAB REF 11:37
PROVIDERS: ATTEND Physician Assistant
DX: E55.9 Vitamin D deficiency, unspecified (principal); G89.29 Other chronic pain; M05.89 Other rheumatoid arthritis with rheumatoid factor of multiple sites; F41.8 Other specified anxiety disorders; K21.9 Gastro-esophageal reflux disease without esophagitis; I10 Essential (primary) hypertension

== ENCOUNTER → 2020-08-18 | Outpatient (REF) | payer MEDICARE, OTHER ==
[2020-08-18 18:10] LABS: BASO # 0.1 10^3/uL (0.0-0.2); BASO % 0.8 % (0.0-1.0); EOS # 0.5 10^3/uL (0.0-0.5); EOS % 7.4 % (0.0-3.0); HEMATOCRIT 34.6 % (36.0-47.0); HEMOGLOBIN 11.5 g/dl (12.0-15.5); LYMPH # 2.2 10^3/uL (1.5-5.0); LYMPH % 35.9 % (24.0-44.0); MEAN CORPUSCULAR HEMOGLOBIN 32.1 pg (27.0-33.0); MEAN CORPUSCULAR HGB CONC 33.2 g/dl (32.0-36.5); MEAN CORPUSCULAR VOLUME 96.6 fl (80.0-96.0); MONO # 0.6 10^3/uL (0.0-0.8); MONO % 8.9 % (0.0-5.0); NEUTROPHILS # 2.9 10^3/uL (1.5-8.5); NEUTROPHILS % 46.8 % (36.0-66.0); PLATELET COUNT, AUTOMATED 286 10^3/uL (150-450); RED BLOOD COUNT 3.58 10^6/uL (4.00-5.40); WHITE BLOOD COUNT 6.2 10^3/uL (4.0-10.0)
[2020-08-18 18:46] LABS: ALBUMIN 3.9 GM/DL (3.2-5.2); BILIRUBIN,TOTAL 0.4 MG/DL (0.2-1.0); CHOLESTEROL RISK RATIO 2.888 (<5); CREATININE FOR GFR 1.17 MG/DL (0.55-1.30); GLOMERULAR FILTRATION RATE 49.3 (>45); PERCENT SATURATION 12.2 % (13.2-45.0); POTASSIUM SERUM 5.1 MEQ/L (3.5-5.1)
== END ==
LOC: M LAB REF 16:53
PROVIDERS: ATTEND Physician Assistant
DX: D64.9 Anemia, unspecified (principal); E78.00 Pure hypercholesterolemia, unspecified; I10 Essential (primary) hypertension

== ENCOUNTER → 2021-01-17 | Outpatient (REF) | payer MEDICARE, OTHER ==
[~2021-01-17] MED LIST changes: -LISI-538 PO; +LISI20TA33 PO
[2021-01-17 17:23] LABS: HEMATOCRIT 38.7 % (36.0-47.0); HEMOGLOBIN 12.8 g/dl (12.0-15.5); MEAN CORPUSCULAR HEMOGLOBIN 31.6 pg (27.0-33.0); MEAN CORPUSCULAR HGB CONC 33.1 g/dl (32.0-36.5); MEAN CORPUSCULAR VOLUME 95.6 fl (80.0-96.0); PLATELET COUNT, AUTOMATED 312 10^3/uL (150-450); RED BLOOD COUNT 4.05 10^6/uL (4.00-5.40); WHITE BLOOD COUNT 7.4 10^3/uL (4.0-10.0)
[2021-01-17 18:03] LABS: ALBUMIN 4.3 GM/DL (3.2-5.2); BILIRUBIN,TOTAL 0.3 MG/DL (0.2-1.0); CALCIUM LEVEL 9.2 MG/DL (8.8-10.2); CHOLESTEROL RISK RATIO 3.2 (<5); CREATININE FOR GFR 1.21 MG/DL (0.55-1.30); GLOMERULAR FILTRATION RATE 47.2 (>45); PERCENT SATURATION 23.1 % (13.2-45.0); POTASSIUM SERUM 4.4 MEQ/L (3.5-5.1); THYROID STIMULATING HORMONE 3.17 uIU/ML (0.358-3.740); TOTAL 25(OH) VITAMIN D 26.2 NG/ML (30.0-100.0); TOTAL PROTEIN 7.6 GM/DL (6.4-8.2)
== END ==
LOC: M LAB REF 15:52
PROVIDERS: ATTEND Physician Assistant
DX: D50.9 Iron deficiency anemia, unspecified (principal)

== ENCOUNTER → 2021-11-27 | Outpatient (CLI) | payer MEDICAID, MEDICARE | LOC: M PLAIMG 12:59 | PROVIDERS: ATTEND Physician Assistant | DX: M25.512 Pain in left shoulder (principal); M85.812 Other specified disorders of bone density and structure, left shoulder; M19.012 Primary osteoarthritis, left shoulder ==

== ENCOUNTER → 2022-03-28 | Outpatient (CLI) | payer MEDICARE | LOC: M WHC 08:09 | PROVIDERS: ATTEND Physician Assistant | DX: Z12.31 Encounter for screening mammogram for malignant neoplasm of breast (principal) ==

== ENCOUNTER → 2022-08-09 | Outpatient (REF) | payer MEDICARE ==
[2022-08-09 15:16] LABS: CALCIUM LEVEL 9.2 MG/DL (8.8-10.2); CREATININE FOR GFR 1.05 MG/DL (0.55-1.30); GLOMERULAR FILTRATION RATE 55.5 (>45); POTASSIUM SERUM 3.9 MEQ/L (3.5-5.1)
== END ==
LOC: M LAB REF 13:03
PROVIDERS: ATTEND Physician Assistant
DX: I10 Essential (primary) hypertension (principal)

== ENCOUNTER → 2022-11-25 | Outpatient (REF) | payer MEDICARE | LOC: M LAB REF 16:11 | PROVIDERS: ATTEND Physician Assistant | DX: L82.1 Other seborrheic keratosis (principal) ==

== ENCOUNTER 2023-01-27 15:32 | Emergency (ER) | payer MEDICARE ==
[~2023-01-27] VITALS: Ht 149.9 cm; Wt 70.2 kg
[2023-01-27 16:38] LABS: BASO % 0.5 % (0.0-1.0); EOS # 0.1 10^3/uL (0.0-0.5); EOS % 1.7 % (0.0-3.0); HEMATOCRIT 37.6 % (36.0-47.0); HEMOGLOBIN 12.9 g/dl (12.0-15.5); LYMPH # 1.9 10^3/uL (1.5-5.0); LYMPH % 29.4 % (24.0-44.0); MEAN CORPUSCULAR HEMOGLOBIN 31.5 pg (27.0-33.0); MEAN CORPUSCULAR HGB CONC 34.3 g/dl (32.0-36.5); MEAN CORPUSCULAR VOLUME 91.7 fl (80.0-96.0); MONO # 0.5 10^3/uL (0.0-0.8); MONO % 7.7 % (2.0-8.0); NEUTROPHILS # 3.9 10^3/uL (1.5-8.5); NEUTROPHILS % 60.4 % (36.0-66.0); PLATELET COUNT, AUTOMATED 320 10^3/uL (150-450); WHITE BLOOD COUNT 6.5 10^3/uL (4.0-10.0)
[2023-01-27 16:48] LABS: INR 1.05; PROTHROMBIN TIME 13.9 SECONDS (12.5-14.5)
[2023-01-27 16:49] LABS: PARTIAL THROMBOPLASTIN TIME 31.2 SECONDS (24.8-34.2)
[2023-01-27 17:04] LABS: CK-MB VALUE MASS 1.1 NG/ML (<3.6)
[2023-01-27 17:05] LABS: LIPASE 55 U/L (12-53)
[2023-01-27 17:06] LABS: CPK CREATINE PHOSPHOKINASE 151 U/L (34-145); MB/CK RELATIVE INDEX 0.72 (< OR =4)
[2023-01-27 17:07] LABS: ALBUMIN 3.9 G/DL (3.2-5.2); ALKALINE PHOSPHATASE 87 U/L (46-116); ALT/SGPT 14 U/L (7.0-40); AST/SGOT 12 U/L (<34); BILIRUBIN,DIRECT 0.1 MG/DL (<0.4); BILIRUBIN,TOTAL 0.3 MG/DL (0.3-1.2); BLOOD UREA NITROGEN 8 MG/DL (9-23); CALCIUM LEVEL 8.7 MG/DL (8.3-10.6); CARBON DIOXIDE LEVEL 28 MMOL/L (20-31); CHLORIDE LEVEL 103 MMOL/L (98-107); CREATININE FOR GFR 0.87 MG/DL (0.55-1.30); GLOMERULAR FILTRATION RATE > 60.0 (>45); GLUCOSE, FASTING 104 MG/DL (74-106); POTASSIUM SERUM 3.6 MMOL/L (3.5-5.1); SODIUM LEVEL 139 MMOL/L (136-145); TOTAL PROTEIN 6.9 G/DL (5.7-8.2)
[2023-01-27 17:08] LABS: FREE T4 0.78 NG/DL (0.89-1.76)
[2023-01-27 17:30] LABS: THYROID STIMULATING HORMONE 0.515 uIU/ML (0.55-4.78)
[2023-01-27 17:56] LABS: CK-MB VALUE MASS < 1.0 NG/ML (<3.6)
[2023-01-27 17:57] LABS: CPK CREATINE PHOSPHOKINASE 133 U/L (34-145); MB/CK RELATIVE INDEX 0.75 (< OR =4)
[2023-01-27 18:17] VITALS: BP 165/77
[2023-01-27] MEDS ORDERED: amLODIPine 5 MG TAB PO ONE (18:40)
[2023-01-27] MEDS ORDERED: AMLO1TAB24 PO (18:44)
[2023-01-27 18:50] VITALS: BP 166/84
== END 2023-01-27 18:54 | disposition home or self-care (01) ==
LOC: M ED 15:32
DX: I10 Essential (primary) hypertension (principal); R07.9 Chest pain, unspecified; E78.5 Hyperlipidemia, unspecified; F41.9 Anxiety disorder, unspecified; F32.9 Major depressive disorder, single episode, unspecified; L40.52 Psoriatic arthritis mutilans; Z79.899 Other long term (current) drug therapy; Z88.5 Allergy status to narcotic agent

== ENCOUNTER → 2023-09-22 | Outpatient (REF) | payer MEDICARE ==
[~2023-09-22] MED LIST changes: +AMLO1TAB24 PO
[2023-09-22 17:37] LABS: BASO # 0.1 10^3/uL (0.0-0.2); BASO % 0.6 % (0.0-1.0); EOS # 0.5 10^3/uL (0.0-0.5); HEMATOCRIT 37.5 % (36.0-47.0); HEMOGLOBIN 12.4 g/dl (12.0-15.5); LYMPH # 2.6 10^3/uL (1.5-5.0); LYMPH % 32.6 % (24.0-44.0); MEAN CORPUSCULAR HEMOGLOBIN 30.7 pg (27.0-33.0); MEAN CORPUSCULAR HGB CONC 33.1 g/dl (32.0-36.5); MEAN CORPUSCULAR VOLUME 92.8 fl (80.0-96.0); MONO # 0.6 10^3/uL (0.0-0.8); MONO % 7.3 % (2.0-8.0); NEUTROPHILS # 4.3 10^3/uL (1.5-8.5); NEUTROPHILS % 53.4 % (36.0-66.0); PLATELET COUNT, AUTOMATED 320 10^3/uL (150-450); RED BLOOD COUNT 4.04 10^6/uL (4.00-5.40)
[2023-09-22 17:44] LABS: BILIRUBIN,TOTAL 0.2 MG/DL (0.3-1.2); CALCIUM LEVEL 9.6 MG/DL (8.3-10.6); CREATININE FOR GFR 1.27 MG/DL (0.55-1.30); GLOMERULAR FILTRATION RATE 44.4 (>45); POTASSIUM SERUM 4.5 MMOL/L (3.5-5.1); THYROID STIMULATING HORMONE 2.049 uIU/ML (0.55-4.78); TOTAL PROTEIN 7.2 G/DL (5.7-8.2)
[2023-09-22 17:45] LABS: FOLATE 13.1 NG/ML (>5.4)
== END ==
LOC: M LAB REF 16:39
PROVIDERS: ATTEND Family Medicine Addiction Medicine
DX: D64.9 Anemia, unspecified (principal); E03.9 Hypothyroidism, unspecified

== ENCOUNTER 2023-11-24 21:55 | Emergency (ER) | payer MEDICARE ==
[~2023-11-24] VITALS: Ht 149.9 cm; Wt 67.4 kg
[2023-11-24 22:02] VITALS: BP 160/72; TEMP 99.4; O2SAT 96
== END 2023-11-24 22:25 | disposition left against medical advice (07) ==
LOC: M ED 21:55
DX: Z53.21 Procedure and treatment not carried out due to patient leaving prior to being seen by health care provider (principal)

== ENCOUNTER 2024-01-27 09:01 | Emergency (ER) | payer MEDICARE ==
[~2024-01-27] VITALS: Ht 149.9 cm; Wt 64.1 kg
[2024-01-27 10:11] LABS: BASO # 0.1 10^3/uL (0.0-0.2); BASO % 0.7 % (0.0-1.0); EOS # 0.9 10^3/uL (0.0-0.5); EOS % 11.2 % (0.0-3.0); HEMATOCRIT 34.5 % (36.0-47.0); HEMOGLOBIN 11.6 g/dl (12.0-15.5); LYMPH # 2.6 10^3/uL (1.5-5.0); LYMPH % 31.1 % (24.0-44.0); MEAN CORPUSCULAR HEMOGLOBIN 30.4 pg (27.0-33.0); MEAN CORPUSCULAR HGB CONC 33.6 g/dl (32.0-36.5); MEAN CORPUSCULAR VOLUME 90.3 fl (80.0-96.0); MONO # 0.7 10^3/uL (0.0-0.8); NEUTROPHILS # 4.1 10^3/uL (1.5-8.5); NEUTROPHILS % 48.8 % (36.0-66.0); PLATELET COUNT, AUTOMATED 312 10^3/uL (150-450); RED BLOOD COUNT 3.82 10^6/uL (4.00-5.40); WHITE BLOOD COUNT 8.4 10^3/uL (4.0-10.0)
[2024-01-27 10:22] LABS: INR 1.17; PROTHROMBIN TIME 14.6 SECONDS (12.5-14.5)
[2024-01-27 10:43] LABS: ALBUMIN 3.5 G/DL (3.2-5.2); ALKALINE PHOSPHATASE 143 U/L (46-116); ALT/SGPT 20 U/L (7.0-40); AST/SGOT 16 U/L (<34); BILIRUBIN,DIRECT 0.1 MG/DL (<0.4); BILIRUBIN,TOTAL 0.3 MG/DL (0.3-1.2); BLOOD UREA NITROGEN 19 MG/DL (9-23); CALCIUM LEVEL 9.6 MG/DL (8.3-10.6); CARBON DIOXIDE LEVEL 27 MMOL/L (20-31); CHLORIDE LEVEL 103 MMOL/L (98-107); CK-MB VALUE MASS 1.1 NG/ML (<3.6); CPK CREATINE PHOSPHOKINASE 84 U/L (34-145); CREATININE FOR GFR 0.94 MG/DL (0.55-1.30); GLOMERULAR FILTRATION RATE > 60.0 (>39); GLUCOSE, FASTING 93 MG/DL (74-106); POTASSIUM SERUM 4.6 MMOL/L (3.5-5.1); SODIUM LEVEL 134 MMOL/L (136-145); THYROID STIMULATING HORMONE 1.992 uIU/ML (0.55-4.78); TOTAL PROTEIN 6.9 G/DL (5.7-8.2)
[2024-01-27 11:00] LABS: THYROXINE (T4) 6.4 UG/DL (4.5-10.9)
[2024-01-27] MEDS: IPRATROPIUM 0.5MG/ALBUTEROL 2.5MG INH SOL UD 3ML (DUONEB) NEB ONE (11:27)
[2024-01-27] MEDS: dexAMETHasone 20MG/5ML VIAL IV ONE (12:02)
[2024-01-27 12:16] VITALS: O2SAT 94
[2024-01-27 12:25] VITALS: BP 108/58; TEMP 99.3
[2024-01-27] MEDS ORDERED: PRED10TA2 PO (12:56)
[2024-01-27] MEDS ORDERED: DOXY100C3 PO (12:56)
== END 2024-01-27 13:58 | disposition home or self-care (01) ==
LOC: M ED 09:01
DX: J98.01 Acute bronchospasm (principal); J18.8 Other pneumonia, unspecified organism; I10 Essential (primary) hypertension; F41.9 Anxiety disorder, unspecified; F32.A Depression, unspecified; Z79.899 Other long term (current) drug therapy; Z88.5 Allergy status to narcotic agent
CPT/HCPCS: 71045; 80048; 80076; 82550; 82553; 83605; 84436; 84443; 84484; 85025; 85610; 87040; 87486; 87581; 87633; 87798; 93005; 93041; 94640; 94664; 94760; 96374; 99285; J1100

== ENCOUNTER → 2024-02-25 | Outpatient (CLI) | payer MEDICARE ==
[~2024-02-25] MED LIST changes: +DOXY100C3 PO; +PRED10TA2 PO
== END ==
LOC: M SLEEP HO 10:59
PROVIDERS: ATTEND Physician Assistant
DX: R06.81 Apnea, not elsewhere classified (principal); R06.2 Wheezing

== ENCOUNTER → 2024-05-24 | Outpatient (REF) | payer MEDICARE ==
[2024-05-24 17:24] LABS: BASO % 0.5 % (0.0-1.0); EOS # 0.4 10^3/uL (0.0-0.5); EOS % 5.8 % (0.0-3.0); HEMATOCRIT 34.1 % (36.0-47.0); HEMOGLOBIN 11.4 g/dl (12.0-15.5); LYMPH # 1.6 10^3/uL (1.5-5.0); LYMPH % 25.4 % (24.0-44.0); MEAN CORPUSCULAR HEMOGLOBIN 30.7 pg (27.0-33.0); MEAN CORPUSCULAR HGB CONC 33.4 g/dl (32.0-36.5); MEAN CORPUSCULAR VOLUME 91.9 fl (80.0-96.0); MONO # 0.5 10^3/uL (0.0-0.8); MONO % 7.9 % (2.0-8.0); NEUTROPHILS # 3.8 10^3/uL (1.5-8.5); NEUTROPHILS % 60.2 % (36.0-66.0); PLATELET COUNT, AUTOMATED 271 10^3/uL (150-450); RED BLOOD COUNT 3.71 10^6/uL (4.00-5.40); WHITE BLOOD COUNT 6.2 10^3/uL (4.0-10.0)
[2024-05-24 17:39] LABS: FERRITIN 75.5 NG/ML (7.3-270.7); FOLATE 17.8 NG/ML (>5.4); TOTAL 25(OH) VITAMIN D 30.7 NG/ML (20.0-100.0)
== END ==
LOC: M LAB REF 16:18
PROVIDERS: ATTEND Physician Assistant
DX: D50.9 Iron deficiency anemia, unspecified (principal); E55.9 Vitamin D deficiency, unspecified

== ENCOUNTER → 2024-09-30 | Outpatient (CLI) | payer MEDICARE | LOC: M SLEEP 20:00 | PROVIDERS: ATTEND Internal Medicine Pulmonary Disease | DX: G47.33 Obstructive sleep apnea (adult) (pediatric) (principal) ==

== ENCOUNTER → 2024-12-02 | Outpatient (CLI) | payer MEDICARE | LOC: M SLEEP 20:00 | PROVIDERS: ATTEND Internal Medicine Pulmonary Disease | DX: G47.33 Obstructive sleep apnea (adult) (pediatric) (principal) ==

== ENCOUNTER → 2024-12-27 | Outpatient (CLI) | payer MEDICARE ==
[2024-12-27 15:59] LABS: BASO # 0.1 10^3/uL (0.0-0.2); BASO % 0.5 % (0.0-1.0); EOS # 0.1 10^3/uL (0.0-0.5); EOS % 1.4 % (0.0-3.0); HEMATOCRIT 37.4 % (36.0-47.0); HEMOGLOBIN 12.5 g/dl (12.0-15.5); LYMPH % 21.2 % (24.0-44.0); MEAN CORPUSCULAR HEMOGLOBIN 31.1 pg (27.0-33.0); MEAN CORPUSCULAR HGB CONC 33.4 g/dl (32.0-36.5); MONO # 0.8 10^3/uL (0.0-0.8); NEUTROPHILS # 6.2 10^3/uL (1.5-8.5); NEUTROPHILS % 67.5 % (36.0-66.0); PLATELET COUNT, AUTOMATED 288 10^3/uL (150-450); RED BLOOD COUNT 4.02 10^6/uL (4.00-5.40); WHITE BLOOD COUNT 9.2 10^3/uL (4.0-10.0)
[2024-12-27 16:22] LABS: CK-MB VALUE MASS < 1.0 NG/ML (<3.6); CPK CREATINE PHOSPHOKINASE 82 U/L (34-145); MB/CK RELATIVE INDEX 1.21 (< OR =4)
== END ==
LOC: M RAD 15:02
PROVIDERS: ATTEND Physician Assistant
DX: R06.00 Dyspnea, unspecified (principal); R07.9 Chest pain, unspecified; R94.31 Abnormal electrocardiogram [ECG] [EKG]; R00.1 Bradycardia, unspecified; I44.0 Atrioventricular block, first degree

== ENCOUNTER → 2025-04-27 | Outpatient (CLI) | payer MEDICARE ==
[~2025-04-27] MED LIST changes: +PRED-1142 PO; -PRED1TABL PO
== END ==
LOC: M PLAIMG 11:16
PROVIDERS: ATTEND Nurse Practitioner Acute Care
DX: I51.81 Takotsubo syndrome (principal)

== ENCOUNTER → 2025-06-15 | Outpatient (REF) | payer MEDICARE ==
[2025-06-15 18:23] LABS: ALT/SGPT 22 U/L (7.0-40); AST/SGOT 23 U/L (<34); CALCIUM LEVEL 10.2 MG/DL (8.3-10.6); CARBON DIOXIDE LEVEL 28 MMOL/L (20-31); CHLORIDE LEVEL 98 MMOL/L (98-107); CHOLESTEROL LEVEL 159 MG/DL (<200); CHOLESTEROL RISK RATIO 2.61 (<5); CREATININE FOR GFR 1.15 MG/DL (0.55-1.30); GLOMERULAR FILTRATION RATE 50.9 (>39); IRON (FE) 68 UG/DL (50-170); LDL CHOLESTEROL 78.6 MG/DL (<100); NON-HDL-C 98.2 MG/DL; PERCENT SATURATION 21.8 % (13.2-45.0); POTASSIUM SERUM 4.5 MMOL/L (3.5-5.1); SODIUM LEVEL 137 MMOL/L (136-145); TOTAL 25(OH) VITAMIN D 56.7 NG/ML (20.0-100.0); TRIGLYCERIDES LEVEL 98 MG/DL (<150); VITAMIN B12 LEVEL 807 PG/ML (211-911)
[2025-06-15 18:54] LABS: BASO # 0.0 10^3/uL (0.0-0.2); BASO % 0.6 % (0.0-1.0); EOS # 0.5 10^3/uL (0.0-0.5); EOS % 7.4 % (0.0-3.0); LYMPH # 2.1 10^3/uL (1.5-5.0); LYMPH % 29.1 % (24.0-44.0); MONO # 0.5 10^3/uL (0.0-0.8); MONO % 7.5 % (2.0-8.0); NEUTROPHILS # 4.0 10^3/uL (1.5-8.5); NEUTROPHILS % 55.1 % (36.0-66.0); PLATELET COUNT, AUTOMATED 304 10^3/uL (150-450)
== END ==
LOC: M LAB REF 17:24
PROVIDERS: ATTEND Physician Assistant
DX: E78.00 Pure hypercholesterolemia, unspecified (principal); R53.83 Other fatigue; Z79.899 Other long term (current) drug therapy; I42.8 Other cardiomyopathies

== ENCOUNTER → 2025-06-20 | Outpatient (CLI) | payer MEDICARE | LOC: M CARPUL 12:55 | PROVIDERS: ATTEND Nurse Practitioner Acute Care | DX: R06.00 Dyspnea, unspecified (principal) ==

== ENCOUNTER → 2025-09-01 | Outpatient (CLI) | payer MEDICARE ==
[~2025-09-01] MED LIST changes: +METHACHOLINE KIT (6 VIAL.NEB PREMIX) INH ONE
== END ==
LOC: M CARPUL 14:06
PROVIDERS: ATTEND Internal Medicine Pulmonary Disease
DX: R06.02 Shortness of breath (principal)
CPT/HCPCS: 95070; J7674